=== PATIENT | female | born 1985 | race Caucasian/White ===

== ENCOUNTER → 2018-12-10 | Outpatient (CLI) | payer BC ==
[~2018-12-10] MED LIST: ADDERALL20 MG PO; ANAPROX DS550 MG PO; ATARAX25 MG PO; AUGMENTIN 875 M1 TAB PO; BACTRIM DS 8001 TA1 PO; CEPHALEXIN500 M1 PO; CIPRO500 MG PO; CIPROFLOXACIN500 MG PO; HYDROCODONE BIT1 T11 PO; KEFLEX500 MG PO; LITHIUM CARB300 MG PO; MOTRIN600 MG PO; MOTRIN800 MG PO; VIBRAMYCIN100 MG PO; WELLBUTRIN100 MG PO; ZOFRAN ODT4 MG SL
== END | disposition home or self-care (01) ==
LOC: RAD 11:11
DX: M54.5 Low back pain (principal); W10.8XXA Fall (on) (from) other stairs and steps, initial encounter

== ENCOUNTER → 2020-08-20 | Outpatient (CLI) | payer OTHER | END | disposition home or self-care (01) | LOC: RAD 12:11 | PROVIDERS: ATTEND Nurse Practitioner Family | DX: R05 Cough (principal) ==

== ENCOUNTER 2020-10-13 18:38 | Emergency (ER) | payer OTHER ==
[~2020-10-13] VITALS: Ht 165.1 cm; Wt 65.8 kg
[2020-10-14 00:37] LABS: BASO # 0.1 10*3/uL (0.0-0.1); BASO % 0.8 % (0.0-1.0); EOS # 0.4 10*3/uL (0.0-0.4); EOS % 4.2 % (1.0-4.0); HEMATOCRIT 38.4 % (37.0-47.0); LYMPH # 2.8 10*3/uL (1.3-4.4); LYMPH % 30.5 % (27.0-41.0); MEAN CELL VOLUME 90.1 fl (81.0-99.0); MEAN CORPUSCULAR HGB 29.8 pg (27.0-31.0); MEAN CORPUSCULAR HGB CONC 33.1 g/dl (33.0-37.0); MEAN PLATELET VOLUME 8.7 fl (9.6-12.3); MONO # 0.6 10*3/uL (0.1-1.0); NEUT # 5.3 10*3/uL (2.3-7.9); NEUT % 57.3 % (47.0-73.0); PLATELET COUNT AUTOMATED 413 10*3/uL (130-400); RED BLOOD COUNT 4.26 10*6/uL (4.10-5.10); RED CELL DISTRI WIDTH 13.6 % (0-14.5); WHITE BLOOD COUNT 9.2 10*3/uL (4.8-10.8)
[2020-10-14 00:52] LABS: ALBUMIN 4.2 gm/dl (3.1-4.5); ALKALINE PHOSPHATASE 78 U/L (45-117); BUN 8 mg/dl (7-24); CHLORIDE 109 mmol/L (98-107); CREATININE 0.82 mg/dL (0.55-1.02); POTASSIUM 3.4 mmol/L (3.5-5.1); SGOT/AST 11 IU/L (3-35); SGPT/ALT 15 U/L (12-78); SODIUM 141 mmol/L (136-145); TOTAL PROTEIN 7.8 gm/dL (6.4-8.2)
[2020-10-14 04:00] VITALS: BP 136/62
== END 2020-10-14 04:45 | disposition short-term general hospital (02) ==
LOC: ED 18:38
PROVIDERS: Emergency Medicine
DX: H54.7 Unspecified visual loss (principal); R51.9 Headache, unspecified; Z88.5 Allergy status to narcotic agent; Z88.8 Allergy status to other drugs, medicaments and biological substances; Z79.899 Other long term (current) drug therapy

== ENCOUNTER → 2020-10-29 | Outpatient (CLI) | payer OTHER | END | disposition home or self-care (01) | LOC: LAB 12:40 → MRI 12:40 | PROVIDERS: ATTEND Psychiatry & Neurology Neurology | DX: G35 Multiple sclerosis (principal); R90.82 White matter disease, unspecified; Z51.81 Encounter for therapeutic drug level monitoring; Z11.9 Encounter for screening for infectious and parasitic diseases, unspecified ==

== ENCOUNTER → 2020-11-01 | Outpatient (CLI) | payer OTHER ==
[2020-11-02 09:06] LABS: HEP B CORE AB TOTAL Negative (Negative); HEPATITIS B SURFACE AG Negative (Negative)
[2020-11-02 12:07] LABS: HEPATITIS B SURFACE AB Non Reactive (.)
[2020-11-03 20:07] LABS: % CD19 3 % (6-23); % CD3 90 % (62-87); % CD4 43 % (32-64); % CD45RA 54 % (28-71); % CD45RO 46 % (28-72); % CD8 48 % (15-46); ABSOLUTE CD19 71 cells/uL (91-610); ABSOLUTE CD3 1939 cells/uL (570-2400); ABSOLUTE CD4 934 cells/uL (430-1800); ABSOLUTE CD45RA 493 cells/uL (150-870); ABSOLUTE CD45RO 417 cells/uL (190-1050); ABSOLUTE CD8 1035 cells/uL (210-1200); ABSOLUTE NATURAL KILLER CELLS 136 cells/uL (78-470); NATURAL KILLER CELLS % 6 % (4-26)
[2020-11-05 18:06] LABS: TB1 Ag VALUE 0.01 IU/mL (.)
== END | disposition home or self-care (01) ==
LOC: LAB 07:35
PROVIDERS: ATTEND Psychiatry & Neurology Neurology
DX: Z51.81 Encounter for therapeutic drug level monitoring (principal); Z11.9 Encounter for screening for infectious and parasitic diseases, unspecified; G35 Multiple sclerosis; R90.82 White matter disease, unspecified

== ENCOUNTER → 2020-12-14 | Outpatient (CLI) | payer OTHER ==
[2020-12-14 08:42] LABS: BASO # 0.1 10*3/uL (0.0-0.1); BASO % 0.9 % (0.0-1.0); EOS # 0.4 10*3/uL (0.0-0.4); EOS % 4.7 % (1.0-4.0); HEMATOCRIT 40.8 % (37.0-47.0); LYMPH # 2.2 10*3/uL (1.3-4.4); LYMPH % 28.4 % (27.0-41.0); MEAN CELL VOLUME 90.5 fl (81.0-99.0); MEAN CORPUSCULAR HGB 29.3 pg (27.0-31.0); MEAN CORPUSCULAR HGB CONC 32.4 g/dl (33.0-37.0); MEAN PLATELET VOLUME 8.8 fl (9.6-12.3); MONO # 0.5 10*3/uL (0.1-1.0); MONO % 6.3 % (3.0-9.0); NEUT # 4.7 10*3/uL (2.3-7.9); NEUT % 59.4 % (47.0-73.0); PLATELET COUNT AUTOMATED 455 10*3/uL (130-400); RED BLOOD COUNT 4.51 10*6/uL (4.10-5.10); RED CELL DISTRI WIDTH 13.4 % (0-14.5); WHITE BLOOD COUNT 7.9 10*3/uL (4.8-10.8)
[2020-12-14 09:13] LABS: ALKALINE PHOSPHATASE 83 U/L (45-117); BUN 12 mg/dl (7-24); CHLORIDE 108 mmol/L (98-107); CREATININE 0.79 mg/dL (0.55-1.02); POTASSIUM 3.8 mmol/L (3.5-5.1); SGOT/AST 16 IU/L (3-35); SGPT/ALT 22 U/L (12-78); SODIUM 140 mmol/L (136-145); TOTAL PROTEIN 7.7 gm/dL (6.4-8.2)
[2020-12-15 05:07] LABS: IMMUNOGLOBULIN G, QNT 802 mg/dL (586-1602); IMMUNOGLOBULIN M, QNT 176 mg/dL (26-217)
[2020-12-16 20:07] LABS: % CD19 4 % (6-23); % CD3 88 % (62-87); % CD4 42 % (32-64); % CD45RA 51 % (28-71); % CD45RO 49 % (28-72); % CD8 47 % (15-46); ABSOLUTE CD19 75 cells/uL (91-610); ABSOLUTE CD3 1839 cells/uL (570-2400); ABSOLUTE CD4 876 cells/uL (430-1800); ABSOLUTE CD45RA 447 cells/uL (150-870); ABSOLUTE CD45RO 428 cells/uL (190-1050); ABSOLUTE CD8 995 cells/uL (210-1200); ABSOLUTE NATURAL KILLER CELLS 169 cells/uL (78-470); CD4:CD8 RATIO 0.89 ratio (0.80-3.90); NATURAL KILLER CELLS % 8 % (4-26)
== END | disposition home or self-care (01) ==
LOC: LAB 08:09 → EDSTATUS 08:10
PROVIDERS: ATTEND Psychiatry & Neurology Neurology
DX: Z51.81 Encounter for therapeutic drug level monitoring (principal); G35 Multiple sclerosis

== ENCOUNTER 2021-01-05 10:20 | Emergency (ER) | payer OTHER ==
[~2021-01-05] VITALS: Ht 170.1 cm; Wt 90.3 kg
[2021-01-05 10:39] LABS: BASO % 0.6 % (0.0-1.0); EOS # 0.3 10*3/uL (0.0-0.4); EOS % 3.6 % (1.0-4.0); HEMATOCRIT 39.7 % (37.0-47.0); LYMPH % 29.4 % (27.0-41.0); MEAN CELL VOLUME 88.4 fl (81.0-99.0); MEAN CORPUSCULAR HGB CONC 32.7 g/dl (33.0-37.0); MEAN PLATELET VOLUME 8.9 fl (9.6-12.3); MONO # 0.5 10*3/uL (0.1-1.0); MONO % 7.8 % (3.0-9.0); NEUT % 58.3 % (47.0-73.0); PLATELET COUNT AUTOMATED 452 10*3/uL (130-400); RED BLOOD COUNT 4.49 10*6/uL (4.10-5.10); RED CELL DISTRI WIDTH 12.6 % (0-14.5); WHITE BLOOD COUNT 6.9 10*3/uL (4.8-10.8)
[2021-01-05 10:50] LABS: ACT PARTIAL THROMBO TIME 27.2 SECONDS (20.0-32.1)
[2021-01-05] MEDS ORDERED: DICLOFENAC SOD50 MG PO (10:52)
[2021-01-05] MEDS ORDERED: VITAMIN D3125 MC1 PO (10:54)
[2021-01-05 10:55] LABS: LIPASE 80 U/L (73-393)
[2021-01-05 10:57] LABS: ALBUMIN 3.9 gm/dl (3.1-4.5); ALKALINE PHOSPHATASE 83 U/L (45-117); BUN 12 mg/dl (7-24); CHLORIDE 106 mmol/L (98-107); CREATININE 0.95 mg/dL (0.55-1.02); POTASSIUM 3.4 mmol/L (3.5-5.1); SGOT/AST 17 IU/L (3-35); SGPT/ALT 21 U/L (12-78); SODIUM 134 mmol/L (136-145)
[2021-01-05 11:11] LABS: BETA-HCG, QUANT < 1.0 mIU/mL (1-3)
[2021-01-05 11:12] LABS: TROPONIN I < 0.015 ng/ml (<0.045)
[2021-01-05 12:49] VITALS: BP 134/62
[2021-01-05] MEDS ORDERED: AUGMENTIN 875875 MG PO (13:52)
[2021-01-05] MEDS ORDERED: ZYRTEC10 M2 PO (13:52)
== END 2021-01-05 14:02 | disposition home or self-care (01) ==
LOC: ED 10:20
PROVIDERS: Emergency Medicine
DX: R59.1 Generalized enlarged lymph nodes (principal); Z88.5 Allergy status to narcotic agent; Z88.8 Allergy status to other drugs, medicaments and biological substances; Z79.899 Other long term (current) drug therapy